=== PATIENT | male | born 1960 | race Caucasian/White ===

== ENCOUNTER 2017-07-04 11:14 | Inpatient (IN) | payer OTHER ==
[~2017-07-04] VITALS: Ht 175.3 cm; Wt 104.3 kg
[2017-07-04] MEDS ORDERED: DICYCLOMINE HCL 20 MG TABLET PO PRN (12:30)
[2017-07-04] MEDS ORDERED: MIRALAX 17 GM POWD.PACK PO PRN (12:30)
[2017-07-04] MEDS ORDERED: LORAZEPAM 1 MG TABLET PO PRN (12:30)
[2017-07-04] MEDS ORDERED: ACETAMINOPHEN 325 MG TABLET PO PRN (12:30)
[2017-07-04] MEDS ORDERED: MAGNESIUM HYDROXIDE 30 ML LIQUID UDC PO PRN (12:30)
[2017-07-04] MEDS ORDERED: hydrALAZINE HCL 50 MG TABLET PO PRN (12:30)
[2017-07-04] MEDS ORDERED: LORAZEPAM 2 MG/1 ML VIAL IM PRN (12:30)
[2017-07-04] MEDS ORDERED: ONDANSETRON 4 MG/2 ML VIAL IM PRN (12:30)
[2017-07-04] MEDS ORDERED: IBUPROFEN 400 MG TABLET PO PRN (12:30)
[2017-07-04] MEDS ORDERED: MAG HYDROX/AL HYDROX/SIMETH 30 ML LIQUID UDC PO PRN (12:30)
[2017-07-04] MEDS ORDERED: LOPERAMIDE HCL 2 MG CAPSULE PO PRN ×2 (12:30)
[2017-07-04] MEDS ORDERED: ONDANSETRON ODT 4 MG TAB.RAPDIS SL PRN (12:30)
[2017-07-04] MEDS ORDERED: THIAMINE HCL 200 MG/2 ML VIAL IM ONE (12:30)
[2017-07-04] MEDS: LORAZEPAM 1 MG TABLET PO SCH ×3 (12:46→20:09)
[2017-07-04 13:03] LABS: *AMPHETAMINE, URINE NEGATIVE (NEGATIVE); *BARBITURATE, URINE NEGATIVE (NEGATIVE); *CANNABINOID, URINE NEGATIVE (NEGATIVE); *COCCAINE, URINE NEGATIVE (NEGATIVE); *OPIATE, URINE NEGATIVE (NEGATIVE); *PHENCYCLIDINE SCREEN,URINE NEGATIVE (NEGATIVE)
[2017-07-04] MEDS: THIAMINE HCL 100 MG TABLET PO SCH (13:16)
[2017-07-04 16:00] VITALS: BP 112/77
[2017-07-04] MEDS: NICOTINE POLACRILEX 4 MG GUM-PK OF TEN BC PRN ×2 (16:42→19:37)
[2017-07-04 17:58] LABS: BASOPHILS # (AUTO) 0.1 K/uL (0.0-8.0); BASOPHILS % (AUTO) 1.4 % (0.0-2.0); EOSINOPHILS % (AUTO) 0.6 % (0.0-7.0); HEMATOCRIT 44.1 % (36.7-47.1); HEMOGLOBIN 14.8 g/dL (12.5-16.3); LYMPHOCYTES # (AUTO) 1.7 K/uL (20.0-40.0); LYMPHOCYTES % (AUTO) 21.4 % (20.5-51.5); MEAN CORPUSCULAR HEMOGLOBIN 32.9 uug (23.8-33.4); MEAN CORPUSCULAR HGB CONC 34 g/dL (32.5-36.3); MEAN CORPUSCULAR VOLUME 98.1 fL (73.0-96.2); MONOCYTES # (AUTO) 0.5 K/uL (2.0-10.0); NEUTROPHILS # (AUTO) 5.5 K/uL (1.8-8.9); NEUTROPHILS % (AUTO) 70.6 % (38.5-71.5); PLATELET COUNT (AUTO) 329 K/uL (152-348); WHITE BLOOD COUNT (AUTO) 7.9 K/uL (3.6-10.2)
[2017-07-04 18:06] LABS: BILIRUBIN,TOTAL 0.5 mg/dL (0.2-1.0); CREATININE 1.1 mg/dL (0.6-1.3); MAGNESIUM 1.6 mg/dL (1.8-2.4); POTASSIUM 3.4 mmol/L (3.5-5.1); TOTAL PROTEIN, SERUM 8.2 g/dL (6.4-8.2)
[2017-07-04] MEDS: CARVEDILOL 6.25 MG TABLET PO SCH (18:33)
[2017-07-04 20:00] VITALS: BP 105/70
[2017-07-04] MEDS: ATORVASTATIN 20 MG TABLET PO SCH (20:09)
[2017-07-04] MEDS ORDERED: POTASSIUM CHLORIDE 10 MEQ TAB.PRT.SR PO ONE (20:45)
[2017-07-04] MEDS ORDERED: MAGNESIUM OXIDE 400 MG TABLET PO ONE (20:45)
[2017-07-04] MEDS: LORAZEPAM 1 MG TABLET PO PRN (22:09)
[2017-07-04] MEDS: diphenhydrAMINE 50 MG CAPSULE PO PRN (22:09)
[2017-07-05] VITALS: BP 126/82
[2017-07-05] MEDS: LORAZEPAM 1 MG TABLET PO PRN (00:30)
[2017-07-05 04:00] VITALS: BP 112/72
[2017-07-05 08:00] VITALS: BP 128/82
[2017-07-05] MEDS: FOLIC ACID 1 MG TABLET PO SCH (08:32)
[2017-07-05] MEDS: LORAZEPAM 1 MG TABLET PO SCH ×3 (08:32→20:29)
[2017-07-05] MEDS: CARVEDILOL 6.25 MG TABLET PO SCH ×2 (08:33→17:19)
[2017-07-05] MEDS: THIAMINE HCL 100 MG TABLET PO SCH (08:33)
[2017-07-05] MEDS: MULTIVITAMINS,THERAPEUTIC TABLET PO SCH (08:33)
[2017-07-05] MEDS: ASPIRIN 81 MG TAB.CHEW PO SCH (08:33)
[2017-07-05] MEDS ORDERED: THIAMINE HCL 100 MG TABLET PO SCH (09:00)
[2017-07-05] MEDS ORDERED: TUBERCULIN,PURIF.PROT.DERIV. 5 TU/0.1 ML TEST ID ONE (09:00)
[2017-07-05 12:00] VITALS: BP 115/74
[2017-07-05] MEDS: NICOTINE POLACRILEX 4 MG GUM-PK OF TEN BC PRN ×2 (14:10→20:33)
[2017-07-05 16:00] VITALS: BP 124/78
[2017-07-05 20:00] VITALS: BP 140/93
[2017-07-05] MEDS: ATORVASTATIN 20 MG TABLET PO SCH (20:28)
[2017-07-06] VITALS: BP 123/78
[2017-07-06] MEDS: LORAZEPAM 1 MG TABLET PO PRN ×2 (00:37→02:39)
[2017-07-06] MEDS: diphenhydrAMINE 50 MG CAPSULE PO PRN (00:41)
[2017-07-06] MEDS: NICOTINE POLACRILEX 4 MG GUM-PK OF TEN BC PRN ×5 (00:49→17:24)
[2017-07-06 07:42] LABS: CREATININE 0.7 mg/dL (0.6-1.3); POTASSIUM 4.3 mmol/L (3.5-5.1)
[2017-07-06 08:00] VITALS: BP 117/83
[2017-07-06 08:06] LABS: HEPATITIS B SURFACE AG Negative (Negative)
[2017-07-06] MEDS: THIAMINE HCL 100 MG TABLET PO SCH (08:39)
[2017-07-06] MEDS: LORAZEPAM 1 MG TABLET PO SCH ×3 (08:39→20:00)
[2017-07-06] MEDS: MULTIVITAMINS,THERAPEUTIC TABLET PO SCH (08:39)
[2017-07-06] MEDS: FOLIC ACID 1 MG TABLET PO SCH (08:39)
[2017-07-06] MEDS: ASPIRIN 81 MG TAB.CHEW PO SCH (08:40)
[2017-07-06] MEDS: CARVEDILOL 6.25 MG TABLET PO SCH ×2 (08:40→18:10)
[2017-07-06] MEDS ORDERED: LORAZEPAM 1 MG TABLET PO SCH (09:00)
[2017-07-06 12:07] VITALS: BP 128/88
[2017-07-06] MEDS ORDERED: DIPH50CA37 PO (13:47)
[2017-07-06] MEDS ORDERED: CARV6.252 PO (13:47)
[2017-07-06] MEDS ORDERED: ATOR20TA PO (13:47)
[2017-07-06] MEDS ORDERED: IBUP-1953 PO (13:47)
[2017-07-06] MEDS ORDERED: ASPI81TA31 PO (13:47)
[2017-07-06 16:00] VITALS: BP 114/85
[2017-07-06] MEDS ORDERED: TRAZODONE 50 MG TABLET PO PRN (19:30)
[2017-07-06 20:00] VITALS: BP 135/86
[2017-07-06] MEDS: ATORVASTATIN 20 MG TABLET PO SCH (20:00)
[2017-07-06] MEDS: NICOTINE 14 MG/24HR PATCH TD SCH (20:00)
[2017-07-07] MEDS: THIAMINE HCL 100 MG TABLET PO SCH (08:43)
[2017-07-07] MEDS: CARVEDILOL 6.25 MG TABLET PO SCH (08:43)
[2017-07-07] MEDS: FOLIC ACID 1 MG TABLET PO SCH (08:43)
[2017-07-07] MEDS: ASPIRIN 81 MG TAB.CHEW PO SCH (08:43)
[2017-07-07] MEDS: MULTIVITAMINS,THERAPEUTIC TABLET PO SCH (08:43)
[2017-07-07] MEDS: NICOTINE 14 MG/24HR PATCH TD SCH (08:44)
[2017-07-07 08:51] VITALS: BP 132/90
[2017-07-07] MEDS ORDERED: PNEUMOCOCCAL 23-VAL P-SAC VAC 0.5 ML VIAL IM ONE (09:00)
[2017-07-07] MEDS ORDERED: LORAZEPAM 1 MG TABLET PO SCH ×2 (09:00)
[2017-07-08] MEDS ORDERED: LORAZEPAM 1 MG TABLET PO SCH (09:00)
== END 2017-07-07 09:30 | DRG 895 ==
LOC: SRC 11:33
PROVIDERS: ADMIT Internal Medicine; ATTEND Internal Medicine
PROC: HZ41ZZZ Group Counseling for Substance Abuse Treatment, Behavioral (ICD-10-PCS; principal; 2017-07-04)
PROC: HZ2ZZZZ Detoxification Services for Substance Abuse Treatment (ICD-10-PCS; principal; 2017-07-04)
DX: F10.232 Alcohol dependence with withdrawal with perceptual disturbance (principal); K70.10 Alcoholic hepatitis without ascites; E83.42 Hypomagnesemia; E86.0 Dehydration; Y90.6 Blood alcohol level of 120-199 mg/100 ml; E87.6 Hypokalemia; Z91.89 Other specified personal risk factors, not elsewhere classified; I25.10 Atherosclerotic heart disease of native coronary artery without angina pectoris; Z95.1 Presence of aortocoronary bypass graft; Z95.2 Presence of prosthetic heart valve; Z95.0 Presence of cardiac pacemaker; Z81.1 Family history of alcohol abuse and dependence; E78.5 Hyperlipidemia, unspecified; I49.9 Cardiac arrhythmia, unspecified; I35.0 Nonrheumatic aortic (valve) stenosis; F41.9 Anxiety disorder, unspecified; F13.90 Sedative, hypnotic, or anxiolytic use, unspecified, uncomplicated; I10 Essential (primary) hypertension; R73.9 Hyperglycemia, unspecified
CPT/HCPCS: 36415; 70030-TC; 80307; 83735; 85025; 86580; 86592; 86705; 86803; 87340; 87806; 93005; A4663; G0480; Q0163